=== PATIENT | female | born 1975 | race Caucasian/White ===

== ENCOUNTER 2017-11-01 14:53 | Emergency (ER) | payer OTHER ==
[~2017-11-01] VITALS: Ht 162.6 cm; Wt 95.3 kg
[2017-11-01] MEDS ORDERED: EFFEXOR XR150 MG PO (15:51)
[2017-11-01 16:17] VITALS: BP 133/79
== END 2017-11-01 16:18 | disposition home or self-care (01) ==
LOC: EME 14:53
DX: Z76.0 Encounter for issue of repeat prescription (principal); F32.9 Major depressive disorder, single episode, unspecified; F41.9 Anxiety disorder, unspecified; F31.9 Bipolar disorder, unspecified; Z91.040 Latex allergy status
CPT/HCPCS: 99281; 99284